=== PATIENT | female | born 2000 | race African-American/Black ===

== ENCOUNTER 2019-01-22 21:05 | Emergency (ER) | payer MEDICAID ==
[~2019-01-22] VITALS: Ht 167.6 cm; Wt 85.0 kg
[2019-01-22 21:39] VITALS: BP 116/82
== END 2019-01-22 23:40 | disposition left against medical advice (07) ==
LOC: ER 21:46
DX: Z53.21 Procedure and treatment not carried out due to patient leaving prior to being seen by health care provider (principal)

== ENCOUNTER 2021-10-15 13:29 | Emergency (ER) | payer MEDICAID, OTHER ==
[~2021-10-15] VITALS: Ht 165.1 cm; Wt 89.0 kg
[2021-10-15 15:54] LABS: BASOPHILS % 1.1 % (0.0-2.0); CHLORIDE 105 mEq/L (98-107); EOSINOPHILS % 5.9 % (0.0-5.0); HEMOGLOBIN. 10.8 g/dL (12.0-16.0); LYMPHOCYTES % 41.7 % (20.0-50.0); MEAN CORPUSCULAR HEMOGLOBIN 19.5 pg (28.0-32.0); MEAN CORPUSCULAR VOLUME 59.5 fL (81.0-99.0); MEAN PLATELET VOLUME 8.8 fl (7.4-10.4); MONOCYTES % 6.8 % (2.0-8.0); NEUTROPHILS % 44.5 % (40.0-76.0); PLATELET 279 x1000/uL (130-400); RED BLOOD CELL COUNT 5.54 mill/uL (4.2-5.4)
[2021-10-15 16:15] LABS: PLATELET ESTIMATE NORMAL
[2021-10-15] MEDS ORDERED: ONDANSETRON 4MG ODT PO ONE (19:00)
[2021-10-15 20:59] LABS: CLARITY URINE CLOUDY (CLEAR); COLOR URINE YELLOW (YELLOW); KETONES URINE 1+ (NEGATIVE); LEUKOCYTE ESTERASE URINE TRACE (NEGATIVE); NITRITE URINE NEGATIVE (NEGATIVE); OCCULT BLOOD URINE NEGATIVE (NEGATIVE); PROTEIN URINE NEGATIVE (NEGATIVE); SPECIFIC GRAVITY URINE 1.006 (1.005-1.030); UROBILINOGEN URINE 0.2 E.U./dL (0.2-1.0)
[2021-10-15] MEDS ORDERED: METR500T MT (21:51)
[2021-10-15] MEDS ORDERED: LACT1CAP78 MT (21:52)
[2021-10-15] MEDS ORDERED: NITR-87 MT (21:53)
[2021-10-15 22:35] VITALS: BP 124/76
== END 2021-10-15 22:38 | disposition home or self-care (01) ==
LOC: ER 13:29
DX: N76.0 Acute vaginitis (principal); B96.89 Other specified bacterial agents as the cause of diseases classified elsewhere; N39.0 Urinary tract infection, site not specified
CPT/HCPCS: 36415; 80053; 81003; 81025; 83690; 85025; 87210; 99283; Q0162; Z7610

== ENCOUNTER 2025-01-09 21:17 | Emergency (ER) | payer MEDICAID, OTHER ==
[~2025-01-09] VITALS: Ht 165.1 cm; Wt 81.0 kg
[~2025-01-09 21:17] MED LIST: LACT1CAP78 MT; METR500T MT; NITR-87 MT
[2025-01-09 22:00] VITALS: TEMP 36.6; O2SAT 100
[2025-01-09] MEDS ORDERED: KETOROLAC 15MG/ML VIAL IM ONE (23:30)
[2025-01-09] MEDS ORDERED: LIDOCAINE 5% PATCH TOP SCH (23:30)
[2025-01-09] MEDS ORDERED: LIDO-53 TP (23:39)
[2025-01-09] MEDS ORDERED: NAPR-1176 MT (23:39)
[2025-01-10] MEDS: KETOROLAC 15MG/ML VIAL IM NR (00:05)
[2025-01-10 01:10] VITALS: BP 114/74; PULSE 81; RESP 18; O2SAT 98
== END 2025-01-10 01:11 | disposition home or self-care (01) ==
LOC: ER 21:17
DX: S60.221A Contusion of right hand, initial encounter (principal); F12.90 Cannabis use, unspecified, uncomplicated; Z79.899 Other long term (current) drug therapy; Z79.1 Long term (current) use of non-steroidal anti-inflammatories (NSAID); V89.2XXA Person injured in unspecified motor-vehicle accident, traffic, initial encounter; Y93.89 Activity, other specified; Y92.89 Other specified places as the place of occurrence of the external cause; Y99.8 Other external cause status
CPT/HCPCS: 99283; 73130; 29125; 96372; J1885